=== PATIENT | male | born 1995 | race Caucasian/White ===

== ENCOUNTER 2016-06-14 16:57 | Emergency (ER) | payer SELFPAY ==
[2016-06-14 17:16] VITALS: BP 161/103; TEMP 99.3; O2SAT 96
--- NOTE | 2016-06-14 17:21 | ED.PDOC ---
History of Present Illness - General Chief Complaint: Behavioral / Psych Stated Complaint: psych problem Time Seen by Provider: 06/14/16 17:11 Source: patient, RN notes reviewed, family Exam Limitations: clinical condition - History of Present Illness Initial Comments: Jesus Manuel Ziegler 21 y/o male with history of polysubstance use according to the nurse that he was injected an unknown drug last week and was held at [facility]. He has history of psychosis in the past. Timing/Duration: just prior to arrival Severity: moderate Episode Description: Patient refused to talk answers only few questions but he is alert Associated Symptoms: other - unknown refuses to talk Allergies/Adverse Reactions: Allergies Morphine Adverse Reaction (Verified 06/14/16 17:17) Home Medications: Ambulatory Orders NK [NK] 06/14/16 Review of Systems - Review of Systems Neurological: States: emotional problems Unable to Obtain Due To: clinical condition Past Medical History (General) - Patient Medical History Hx Seizures: No Hx Stroke: No Hx Dementia: - unk Hx Asthma: No Hx of COPD: - unk Hx Cardiac Disorders: No Hx Congestive Heart Failure: No Hx Pacemaker: - unk Hx Hypertension: - unk Hx Thyroid Disease: - unk Hx Diabetes: No Hx Gastroesophageal Reflux: - unk Hx Renal Disease: - unk Hx Cancer: - unk Hx of HIV: - unk Hx Hepatitis C: - unk Hx MRSA: No Surgical History: no surgical history - Vaccination History Hx Tetanus, Diphtheria Vaccination: No Hx Influenza Vaccination: No Hx Pneumococcal Vaccination: No - Social History Hx Tobacco Use: Yes Hx Chewing Tobacco Use: No Hx Alcohol Use: No Hx Substance Use: No Hx Substance Use Treatment: No Hx Depression: No - Activities of Daily Living Hospice Agency (if applicable):: None - Female History Patient is a Female of Child Bearing Age (10 -59 yrs old): No Patient : No Family Medical History - Family History Mother Family History: Unknown Living Status: Still Living Physical Exam - Physical Exam General Appearance: Alert, No apparent distress Eyes, Ears, Nose, Throat Exam: PERRL/EOMI, normal ENT inspection, TMs normal Neck: non-tender, full range of motion, supple, normal inspection Respiratory: chest non-tender, lungs clear, normal breath sounds Cardiovascular/Chest: normal peripheral pulses, regular rate, rhythm, no edema, no murmur Gastrointestinal/Abdominal: normal bowel sounds, non tender, soft, no organomegaly Extremities Exam: non-tender, normal range of motion Neurological: alert, calm, other - cooperative Appearance: appropriate appearance Behavior/Eye Contact/Speech: cooperative, good eye contact, normal speech, other - whispers Skin Exam: normal color, warm/dry Progress - Progress Progress: 06/14/16 17:35 Declined blood draws left ama. Departure - Departure Clinical Impression: Substance abuse Time of Disposition: 17:35 Disposition: Left Against Medical Advice Condition: Fair Departure Forms: ED Discharge - Pt. Copy, Patient Portal Self Enrollment Home Medications: Ambulatory Orders NK [NK] 06/14/16
== END 2016-06-14 17:40 | disposition left against medical advice (07) ==
LOC: ER 16:57
DX: F19.10 Other psychoactive substance abuse, uncomplicated (principal); Z88.6 Allergy status to analgesic agent; Z87.891 Personal history of nicotine dependence